=== PATIENT | male | born 1960 | race Caucasian/White ===

== ENCOUNTER → 2019-06-13 | Outpatient (CLI) | payer BC, OTHER | LOC: NUC 07:40 | DX: K80.20 Calculus of gallbladder without cholecystitis without obstruction (principal) ==

== ENCOUNTER → 2019-07-18 | Outpatient (CLI) | payer BC | LOC: ULTRA 08:18 | DX: K76.0 Fatty (change of) liver, not elsewhere classified (principal); R16.2 Hepatomegaly with splenomegaly, not elsewhere classified ==

== ENCOUNTER → 2020-05-20 | Outpatient (CLI) | payer BC ==
[~2020-05-20] VITALS: Ht 182.9 cm; Wt 129.3 kg
[~2020-05-20] MED LIST: AMBIEN CR12.5 MG PO; CIALIS20 MG PO; CRESTOR10 MG PO; HYDROCHLOROTHIA25 M1 PO; HYDROCODON-ACE1 EAC7 PO; IBUPROFEN 800800 M1 PO; METFORMIN HCL500 M3 PO; OMEPRAZOLE 20 M20 M1 PO; PROVENTIL HFA6.7 G1 INH; ZESTRIL40 MG PO
--- NOTE | ~2020-05-20 | HPC ---
[facility] [place] [address] PAIN MANAGEMENT CONSULTATION Name: CHARLIE GOMEZ Room #: REG [facility].#: [id number] Admission: 05/20/20 Attend Phys: Alec Plascencia MD Discharge: Date of : 64 Report #: [id number] THIS REPORT FOR: cc: Angel Reddy MD,Angel Plascencia,Alec Booth MD ~ CC: Angel Plascencia DATE OF SERVICE: 05/20/2020 CHIEF COMPLAINT: Severe acute low back pain radiating into the right pelvis, groin and L5 distribution of the right leg. HISTORY OF PRESENT ILLNESS: The patient is a pleasant 59-year-old who we are seeing today for acute pain. Dr. Reddy sent him to our clinic with thoughts that perhaps we might proceed with an early epidural injection given the degree of his discomfort. He has done exceptionally well since back surgery in the . He has been doing some moving of a relative's furniture and belongings and has noticed over the last week to 10 days an excruciating pain that he describes as burning, sharp and stabbing that has not been relieved with [id number] analgesics. He scores his pain as a 10/10. He has been unable to sleep lying down and has been in a chair. He is not taking stronger pain medication for this and has no opposition to a short-term use. His back surgeries were performed in [place]. It began with a diskectomy followed by spinal fusion as his final surgery. Surgeries were performed between 1984 and 1988 and he did well following that. He describes his posterior instrumentation as Quiroga rods. MEDICATIONS: Lisinopril, omeprazole, Ambien p.r.n. and hydrochlorothiazide. ALLERGIES: CODEINE. PAST MEDICAL HISTORY: Positive for hypertension, obesity, some joint pains, which he describes as arthritis involving migratory joints at different times depending on activity. PAST SURGICAL HISTORY: Positive for the diskectomy and spinal fusions occurring between 1984 and 1988. SOCIAL HISTORY: He is , works in [employer]. He smokes still about one-third of a pack of cigarettes a day and has done so for 20 years. He drinks 1-2 alcoholic beverages per week in social setting. Pain impact score is 61/70. This is exceptionally high suggesting dramatic [facility] [address] [place] [address] PAIN MANAGEMENT CONSULTATION Name: PATRICIACHARLIE JOANNA [id number] Admission: 05/20/20 Attend Phys: Alec Plascencia MD Discharge: Date of : 64 Report #: [id number] interference with general activity, mood, walking, relationships with others, sleep and enjoyment of life, the latter two 07/17. REVIEW OF SYSTEMS: Positive for decreased appetite, fatigue, weakness, constipation. PHYSICAL EXAMINATION: GENERAL: Pleasant gentleman, 6-foot tall, 285 pounds, BMI is 38.6. VITAL SIGNS: Blood pressure 151/86, heart rate 80, respirations 20, O2 sat 98, pain intensity 10/10. HEENT: Normal. CHEST: Clear, without wheezes. CARDIAC: Rhythm regular, no murmur audible. ABDOMEN: Obese and soft. Bowel sounds present. MUSCULOSKELETAL: Examination of the spine reveals extensive scar from previous surgery. There is tenderness along the scar. He has fair range of motion in flexion and extension with mild increase in pain radiating into the right leg. Straight leg raising is positive on the right, radiating some discomfort into the right lateral thigh. Interestingly, this is well localized along the tensor fascia judson and there is localized tenderness. It does not extend below the knee. Sensation is normal to light touch. There is no focal weakness on the right. Examination of the left is normal except for a foot drop with mild weakness in dorsiflexion of the left foot. He reports this is chronic. Sensation and strength are normal otherwise. IMPRESSION: Acute onset right low back pain with some radicular like symptoms in the L5 distribution. RECOMMENDATION: Following protocols, I have sent him off for physical therapy this week and given him a prescription for hydrocodone 5/325 one tablet q.4 hours to help with the acute pain. We discussed the importance of remaining active and moving, which seems to be more helpful than rest. I did not order an MRI at this time. If he is not better in 1 week, I think it is reasonable to proceed with a L5-S1 transforaminal epidural injection given his prior surgeries. Midline approach would be challenging. Followup visit planned next or Sunday for possible injection. By: [id number] Alec Plascencia MD /nt
[2020-05-20 09:40] VITALS: BP 151/96
--- NOTE | 2020-05-20 10:15 | NUR ---
Pain Clinic Assessment: 1. History of Osteoarthritis: Left Upper Extremity Right Lower Extremity History of Rheumatoid Arthritis: Not Applicable 2. Height: 6 ft. 0 in. 182.9 cm. Weight: 285.0 lb. oz. 129.276 kg. Patient's BMI: 38.6 3. Vital Signs: BP: 151/96 Pulse: 88 Resp: 20 Temp: 02 Sat: 98 ECG Mon: 4. Pain Intensity: 10 5. Fall Risk: Dizziness: N Needs help standing or walking: Y Fallen in the last 3 months: N Fall risk comments: 6. Patient on Blood Thinner: None 7. History of Hypertension: Y 8. Opioid Therapy greater than 6 weeks: N Opiate Contract Signed: 9. Risk Assessment Tool Provided: low 10. Functional Assessment Tool: / 11. Recreational Drug Use: Never Drug Type: Tobacco Use: Current Every Day Smoker Tobacco Type: Cigarettes Amount or Packs/day: 1/3 How Many Years: 20 Alcohol Use: Yes Frequency: Weekly Quant: 2
== END ==
LOC: PAIN 09:01
PROVIDERS: ATTEND Anesthesiology Pain Medicine
DX: M54.5 Low back pain (principal); I10 Essential (primary) hypertension; E66.9 Obesity, unspecified; Z88.5 Allergy status to narcotic agent; Z79.899 Other long term (current) drug therapy; Z79.891 Long term (current) use of opiate analgesic

== ENCOUNTER → 2020-05-27 | Outpatient (CLI) | payer BC ==
[~2020-05-27] VITALS: Ht 182.9 cm; Wt 129.3 kg
--- NOTE | ~2020-05-27 | HPC ---
[facility] [place] [address] PAIN MANAGEMENT CONSULTATION Name: CHARLIE GOMEZ Room #: REG [facility].#: [id number] Admission: 05/27/20 Attend Phys: Alec Plascencia MD Discharge: Date of : 64 Report #: [id number] THIS REPORT FOR: cc: Yokasta Reddy MD, Rene P. MD Morgan, Richard L. MD ~ CC: YOKASTA Plascencia DATE OF SERVICE: 05/27/2020 Followup visit for epidural injection. I saw the patient just one week ago. He was dealing with acute pain that was dramatic. He told me today that his pain again was 10/10. If he was not coming here today, he was going to the Emergency Room. We reviewed his consultation from 05/20/2020. At that time, I told him we would try to give him some exercise, keep him moving and physical therapy, prescription was written, and if he was no better in 1 week, I would give him an epidural injection to try and decrease radicular symptoms. Plan was to perform the injection using a transforaminal approach given his history of prior surgery. We began with that approach today, but transitioned to a midline later in the procedure. PHYSICAL EXAMINATION: GENERAL: He is a morbidly obese gentleman. VITAL SIGNS: Blood pressure is 142/91, heart rate 97, respirations 20, O2 sat 97%. He is 6 feet tall, 285 pounds, BMI of 38.6. MUSCULOSKELETAL: He moves from sitting to standing position, but moves very gingerly with an antalgic gait. He has tenderness across his low back, difficulty with flexion, extension, and rotational movements. Straight leg raising on the right is markedly positive with radiating pain into the groin and anterior thigh. He had pain more on the lateral thigh at last visit. There is still some there, but it is much improved. More of the pain now is in the L2-3 distribution above his fusion. Sensation is intact. He has no significant pain with internal and external rotation of the hip. IMPRESSION: Lumbar radiculopathy. Today, this presents as a L2-L3 radicular pain, which would be above the level of his prior fusion. This is a common area for breakdown and changes and I have elected today to proceed with a transforaminal epidural injection at L2-L3 under fluoroscopic guidance. PROCEDURE: After informed consent, he was taken to the fluoroscopic suite, placed prone, skin prepped with ChloraPrep. Skin was anesthetized over the [address] [address] PAIN MANAGEMENT CONSULTATION Name: PATRICIACHARLIE ALAN Room #: REG [facility].#: [id number] Admission: 05/27/20 Attend Phys: Alec Plascencia MD Discharge: Date of : 64 Report #: [id number] L2-L3 interspace and neural foramen. He was very uncomfortable lying in this position and was frequently moving. A 22-gauge 4-1/2 inch needle was advanced toward the neural foramen. I advanced the needle along the neural foramen, but was uncomfortable with the spread of dye external to the foramen and decided to move from transforaminal approach to a midline approach, right paramedian. I explained this with the patient and rationale for changing injection. Skin was then anesthetized over the L2-L3 interspace and a 20-gauge Tuohy epidural needle advanced first attempt into the epidural space with loss of resistance technique to the right paramedian. No blood or CSF was aspirated. I then injected 1 mL of Omnipaque to demonstrate an excellent epidurogram extending into the right lateral recess. This was then followed by 4 mL of 0.5% lidocaine mixed with 80 mg of triamcinolone. He tolerated the procedure well. Pain was dramatically reduced in the recovery room. I believe that we covered the dermatomal distribution of his pain. Whether this will provide lasting relief is yet to be seen. I would like to see how he gets along over the next week, see him back in a few weeks. If necessary, we will perform an MRI. By: [id number] Alec Plascencia MD /nt
[2020-05-27 08:39] VITALS: BP 142/91
--- NOTE | 2020-05-27 08:46 | NUR ---
Pain Clinic Assessment: 1. History of Osteoarthritis: Left Upper Extremity Right Lower Extremity History of Rheumatoid Arthritis: Not Applicable 2. Height: 6 ft. 0 in. 182.9 cm. Weight: 285.0 lb. oz. 129.276 kg. Patient's BMI: 38.6 3. Vital Signs: BP: 142/91 Pulse: 97 Resp: 20 Temp: 02 Sat: 97 ECG Mon: 4. Pain Intensity: 9 5. Fall Risk: Dizziness: N Needs help standing or walking: N Fallen in the last 3 months: N Fall risk comments: 6. Patient on Blood Thinner: None 7. History of Hypertension: Y 8. Opioid Therapy greater than 6 weeks: N Opiate Contract Signed: 9. Risk Assessment Tool Provided: LOW 10. Functional Assessment Tool: / 11. Recreational Drug Use: Never Drug Type: Tobacco Use: Current Every Day Smoker Tobacco Type: Cigarettes Amount or Packs/day: 1/3 PACK/DAY How Many Years: Alcohol Use: Yes Frequency: Weekly Quant: 2
== END | disposition home or self-care (01) ==
LOC: PAIN 05-26 13:24
PROVIDERS: ATTEND Anesthesiology Pain Medicine
DX: M54.16 Radiculopathy, lumbar region (principal); G89.29 Other chronic pain; F17.210 Nicotine dependence, cigarettes, uncomplicated; Z98.890 Other specified postprocedural states; Z79.899 Other long term (current) drug therapy

== ENCOUNTER → 2020-06-17 | Outpatient (CLI) | payer BC ==
[~2020-06-17] VITALS: Ht 182.9 cm; Wt 128.6 kg
[~2020-06-17] MED LIST changes: +NEURONTIN300 MG PO
--- NOTE | ~2020-06-17 | HPC ---
[facility] [place] [address] [place] [address] PAIN MANAGEMENT CONSULTATION Name: CHARLIE GOMEZ Room #: REG [facility].#: [id number] Admission: 06/17/20 Attend Phys: Alec Plascencia MD Discharge: Date of : 64 Report #: [id number] THIS REPORT FOR: cc: Angel Reddy MD, Rene P. MD Morgan, Richard L. MD ~ CC: Angel Plascencia DATE OF SERVICE: 06/17/2020 Followup visit for severe pain, right hip. The patient returns to pain clinic today after an epidural injection for presumptive spinal stenosis and radiculopathy. He has had an MRI since I saw him last. Although there are artifacts in the MRI, it does not appear that he has a concordant lesion that would cause radiculopathy in the L2-L3 distribution. His pain now is sounding more like pain radiating from the hip where he has some known arthrosis. He had a plain film x-ray done in 2016 that showed arthrosis at that time. Pain is severe with lying down. He cannot sleep on his back at night. Pain radiates into the groin and along the anterior thigh consistent with referred pain from the right hip. He has had some hydrocodone, but uses it sparingly and tries to avoid it. He is having trouble with medication for sleep and I discussed with him renewal of hydrocodone 5/325. I will give him just 30 tablets and also provide him with gabapentin at night to help with the sedation and sleep that may have a slight neuropathic component to his pain, although I am again suspicious of arthrosis. PHYSICAL EXAMINATION: GENERAL: He is a morbidly obese gentleman with a BMI of 38.4, blood pressure 134/89, heart rate is 107, respirations 16. He moves independently from sitting to standing position, ambulates with antalgic features. He has a scar from his back from previous surgery, which is tender. He has pain in the right groin with palpation. He does not have a significant amount of pain with internal and external rotation or GLENN testing. He does have pain with some extension. Lying flat is miserable for him and he tries to come off the bed. He has pain that radiates consistent with hip arthropathy. RECOMMENDATIONS: 1. Hip x-ray, which was performed again showing arthrosis of the right hip, worse on the right than the left. 2. Right hip injection under fluoroscopic guidance for diagnostic and therapeutic purposes. [address] [address] PAIN MANAGEMENT CONSULTATION Name: CHARLIE GOMEZ Room #: REG [facility].#: [id number] Admission: 06/17/20 Attend Phys: Alec Plascencia MD Discharge: Date of : 64 Report #: [id number] After informed consent, he was taken to the fluoroscopic suite. He was placed prone, skin prepped with ChloraPrep. Skin anesthetized over the right hip joint and the femoral neck. A 22-gauge needle was advanced until it contacted the femoral neck. I repositioned the needle twice until I obtained an arthrogram. I injected 4 mL of 0.5% bupivacaine mixed with 40 mg of triamcinolone. He tolerated the procedure well and had some significant improvement in his pain as I walked him about the clinic, although he continues to complain of some pain in his back and scored his pain is a 5/10. I believe this is fairly diagnostic for hip arthrosis. Followup visit planned as needed. I did prescribe some pain medication for him as I suspect that this will have only temporary effects. By: [id number] Alec Plascencia MD /nt
[2020-06-17 10:03] VITALS: BP 134/89
--- NOTE | 2020-06-17 10:17 | NUR ---
Pain Clinic Assessment: 1. History of Osteoarthritis: Left Upper Extremity Right Lower Extremity History of Rheumatoid Arthritis: Not Applicable 2. Height: 6 ft. 0 in. 182.9 cm. Weight: 283.4 lb. oz. 128.550 kg. Patient's BMI: 38.4 3. Vital Signs: BP: 134/89 Pulse: 107 Resp: 16 Temp: 02 Sat: 98 ECG Mon: 4. Pain Intensity: 7 5. Fall Risk: Dizziness: N Needs help standing or walking: N Fallen in the last 3 months: N Fall risk comments: 6. Patient on Blood Thinner: None 7. History of Hypertension: Y 8. Opioid Therapy greater than 6 weeks: N Opiate Contract Signed: 9. Risk Assessment Tool Provided: LOW 10. Functional Assessment Tool: / 11. Recreational Drug Use: Never Drug Type: Tobacco Use: Current Every Day Smoker Tobacco Type: Amount or Packs/day: 1/3 PACK/DAY How Many Years: Alcohol Use: Yes Frequency: Weekly Quant: 2-3
== END | disposition home or self-care (01) ==
LOC: PAIN 06:42
PROVIDERS: ATTEND Anesthesiology Pain Medicine
DX: M25.551 Pain in right hip (principal); E66.01 Morbid (severe) obesity due to excess calories; Z68.38 Body mass index [BMI] 38.0-38.9, adult; Z98.890 Other specified postprocedural states; Z79.899 Other long term (current) drug therapy; Z79.891 Long term (current) use of opiate analgesic